=== PATIENT | female | born 1950 | race Caucasian/White ===

== ENCOUNTER 2020-12-15 16:20 | Emergency (ER) | payer OTHER ==
[~2020-12-15] VITALS: Ht 157.5 cm; Wt 86.2 kg
[2020-12-15 16:30] VITALS: BP_SYST 160
[2020-12-15] MEDS ORDERED: IBUP-1969 PO (17:56)
[2020-12-15] MEDS ORDERED: HYDR-3917 PO (17:56)
== END 2020-12-15 18:26 | disposition home or self-care (01) ==
LOC: SED 16:20
DX: S82.002A Unspecified fracture of left patella, initial encounter for closed fracture (principal); Z88.0 Allergy status to penicillin; Z91.040 Latex allergy status; Z79.899 Other long term (current) drug therapy; I10 Essential (primary) hypertension; W22.8XXA Striking against or struck by other objects, initial encounter; Y93.89 Activity, other specified; Y92.89 Other specified places as the place of occurrence of the external cause; Y99.8 Other external cause status
CPT/HCPCS: 73700-TC; 76376; 99284